=== PATIENT | male | born 1940 | race American Indian/Alaskan Native ===

== ENCOUNTER → 2018-06-26 | Outpatient (CLI) | payer MEDICARE, OTHER | END | disposition home or self-care (01) | LOC: LAB SHORT 10:17 → PLD 10:17 | DX: L57.0 Actinic keratosis (principal) | CPT/HCPCS: 88305 ==

== ENCOUNTER → 2019-03-10 | Outpatient (CLI) | payer MEDICARE, OTHER | END | disposition home or self-care (01) | LOC: PLD 10:49 → LAB SHORT 10:49 | DX: L28.0 Lichen simplex chronicus (principal) | CPT/HCPCS: 88305 ==

== ENCOUNTER → 2019-12-31 | Outpatient (CLI) | payer MEDICARE, OTHER ==
[~2019-12-31] MED LIST: AMLO5 PO; ASPI81CH PO; CLOP75 PO; HYDCHL25 PO; IRBESARTAN150 MG PO; NEBI10 PO; NITR.4SL SL; TAMS.4ER PO; ZOLP10 PO; Zocor40 MG PO
== END | disposition home or self-care (01) ==
LOC: LAB EV 08:09 → LAB SHORT 08:09
DX: N13.8 Other obstructive and reflux uropathy (principal)
CPT/HCPCS: 87086

== ENCOUNTER 2022-11-13 09:13 | Day surgery (SDC) | payer MEDICARE, OTHER ==
[~2022-11-13] VITALS: Ht 172.7 cm; Wt 80.9 kg
[~2022-11-13 09:13] MED LIST changes: +AMOCLA875 PO
[2022-11-13] MEDS ORDERED: ALLO300 PO (10:10)
[2022-11-13] MEDS ORDERED: VALA500 PO (10:13)
[2022-11-13] MEDS ORDERED: EZALLOR SPRINKL20 MG PO (10:13)
[2022-11-13] MEDS ORDERED: ISOSORBIDE MONO10 MG PO (10:13)
--- NOTE | 2022-11-13 10:20 | NUR ---
11/13/22 1020 Marty Ramachandran CALL LIGHT WITHIN REACH. JONATHANIN IN RIGHT EYE AT 1011 AND JESSENIA IN AT 1012
[2022-11-13 13:09] VITALS: BP 156/94
--- NOTE | 2022-11-13 13:15 | NUR ---
11/13/22 1315 Ottoniel Woody IV REMOVED INTACT. SITE WNL.
== END 2022-11-13 11:45 | disposition home or self-care (01) ==
LOC: ORSCSDS 09:13
PROVIDERS: Student in an Organized Health Care Education/Training Program
PROC: 08DJ3ZZ Extraction of Right Lens, Percutaneous Approach (ICD-10-PCS; principal; 2022-11-13 10:30)
DX: H25.13 Age-related nuclear cataract, bilateral (principal); I10 Essential (primary) hypertension; I25.2 Old myocardial infarction; I25.10 Atherosclerotic heart disease of native coronary artery without angina pectoris; E78.5 Hyperlipidemia, unspecified; Z87.891 Personal history of nicotine dependence; Z79.82 Long term (current) use of aspirin; Z79.02 Long term (current) use of antithrombotics/antiplatelets; Z79.899 Other long term (current) drug therapy
CPT/HCPCS: J2250; J3010; J7040; V2632

== ENCOUNTER 2022-12-11 08:11 | Day surgery (SDC) | payer MEDICARE, OTHER ==
[~2022-12-11] VITALS: Ht 172.7 cm; Wt 80.2 kg
[~2022-12-11 08:11] MED LIST changes: +ALLO300 PO; +EZALLOR SPRINKL20 MG PO; +ISOSORBIDE MONO10 MG PO; +VALA500 PO
[2022-12-11 10:02] VITALS: BP 126/98
--- NOTE | 2022-12-11 10:19 | NUR ---
12/11/22 1019 Ottoniel Woody iv removed intact. SITE WNL.
== END 2022-12-11 10:19 | disposition home or self-care (01) ==
LOC: ORSCSDS 08:11
PROVIDERS: Student in an Organized Health Care Education/Training Program
PROC: 08DK3ZZ Extraction of Left Lens, Percutaneous Approach (ICD-10-PCS; principal; 2022-12-11 09:30)
DX: H25.12 Age-related nuclear cataract, left eye (principal); Z96.1 Presence of intraocular lens; I10 Essential (primary) hypertension; I25.10 Atherosclerotic heart disease of native coronary artery without angina pectoris; G47.33 Obstructive sleep apnea (adult) (pediatric); Z79.82 Long term (current) use of aspirin; Z79.899 Other long term (current) drug therapy
CPT/HCPCS: J2250; J3010; J3301; J7040; V2632

== ENCOUNTER → 2023-01-29 | Outpatient (CLI) | payer MEDICARE, OTHER | END | disposition home or self-care (01) | LOC: LAB SHORT 12:03 → PLD 12:03 | DX: M26.03 Mandibular hyperplasia (principal); L57.0 Actinic keratosis; L74.8 Other eccrine sweat disorders; L22 Diaper dermatitis | CPT/HCPCS: 88305; 88312 ==